=== PATIENT | female | born 1965 | race Caucasian/White ===

== ENCOUNTER 2022-03-03 21:24 | Emergency (ER) | payer MEDICARE ==
[2022-03-03 22:33] LABS: #Monocytes 0.5 10x3/uL (0.0-1.1); #Neutrophils 5.6 10x3/uL (1.5-8.4); %Basophils 0.4 % (0.0-2.0); %Eosinophils 0.5 % (0.0-6.0); %Lymphocytes 18.2 % (18.0-47.0); %Monocytes 6.3 % (0.0-10.0); %Neutrophils 73.8 % (40.0-75.0); Hemoglobin 14.7 g/dL (12.0-15.5); Mean Corpuscular HGB CONC 34.5 g/dL (32.0-36.0); Mean Corpuscular Hemoglobin 31.7 pg (27.0-33.0); Mean Platelet Volume 10.2 fl (7.4-10.4); Platelet Count 217 10x3/uL (150-450); Red Blood Cell (RBC) Count 4.63 10x6/uL (3.90-5.03); White Blood Cell (WBC) Count 7.6 10x3/uL (3.5-10.5)
[2022-03-03 22:49] LABS: Acetaminophen Less than 10.0 mcg/mL (10.0-30.0); Alcohol 105 mg/dL (Less than 10); Salicylate Less than 8.0 mg/dL (15.0-30.0)
[2022-03-03 22:50] LABS: ALT (SGPT) 15 U/L (8-55); AST (SGOT) 24 U/L (5-34); Albumin 4.9 g/dL (3.5-5.0); Alkaline Phosphatase 54 U/L (40-110); Anion Gap 16 mmol/L (10-20); BUN (Urea Nitrogen) 13 mg/dL (9.8-20.1); Bilirubin, Total 0.3 mg/dL (0.2-1.2); Calc. Creatinine Clearance 0 mL/min (70-130); Calcium 10.2 mg/dL (7.8-10.44); Carbon Dioxide 30 mmol/L (22-29); Chloride 102 mmol/L (98-107); Globulin 2.7 g/dL (2.4-3.5); Glucose 128 mg/dL (70-105); Potassium 4.2 mmol/L (3.5-5.1); Protein, Total 7.6 g/dL (6.0-8.3); Sodium 144 mmol/L (136-145)
== END 2022-03-03 23:50 | disposition home or self-care (01) ==
LOC: CSHERS 21:24
DX: T67.5XXA Heat exhaustion, unspecified, initial encounter (principal); F10.129 Alcohol abuse with intoxication, unspecified; I10 Essential (primary) hypertension; E78.5 Hyperlipidemia, unspecified
CPT/HCPCS: 80053; 80307; 84484; 85025; 93005; 96360